=== PATIENT | male | born 1990 | race Caucasian/White ===

== ENCOUNTER 2025-11-13 19:57 | Outpatient (CLI) | payer OTHER, SELFPAY | END 2025-11-13 19:58 | disposition home or self-care (01) | LOC: SLEEP 19:59 | PROVIDERS: Family Provider Nurse Practitioner Family; PCP Nurse Practitioner Family; Referring Provider Family Medicine Geriatric Medicine; Visit Provider Internal Medicine Pulmonary Disease | DX: G47.9 Sleep disorder, unspecified (principal) | CPT/HCPCS: 95810 ==